=== PATIENT | female | born 1990 | race Asian ===

== ENCOUNTER 2019-08-06 10:03 | Emergency (ER) | payer OTHER, BC ==
[~2019-08-06] VITALS: Ht 157.5 cm; Wt 59.0 kg
[2019-08-06 10:21] VITALS: BP 122/68
== END 2019-08-06 11:10 | disposition home or self-care (01) ==
LOC: ER 10:03
DX: Z03.818 Encounter for observation for suspected exposure to other biological agents ruled out (principal)
CPT/HCPCS: 99283; U0003-CS